=== PATIENT | male | born 1975 | race Caucasian/White ===

== ENCOUNTER 2017-08-04 20:46 | Emergency (ER) | payer MEDICAID, SELFPAY ==
[2017-08-04 20:47] VITALS: BP 144/85; PULSE 98; RESP 16; TEMP 36.9; O2SAT 94; BMI 23.6
--- NOTE | 2017-08-04 22:08 | ED.VISSUMM ---
- ER Visit Summary Date of Service: 08/04/17 Chief Complaint: Right eye redness History of Present Illness: The patient is a 41 M presents to the emergency department with right eye redness. Patient symptoms began this morning. He developed some redness of the eye. Since then, it has worsened. He denies any trauma. He did not get anything into it. He states that he is been rubbing it because it has been itching. He has had no visual change but does describe some burning in the eye. He does not wear contacts but does wear glasses occasionally. He denies any fevers or chills. He has had some mild nasal drainage. Physical Examination: Exam is relatively unremarkable. There is diffuse corneal injection. There is no hypopyon. There is no hyphema. Eyelids are everted and there is no evidence of foreign body. There is some crusting at the corner. Pupils are equal round reactive. Extra ocular muscles are intact. No periorbital erythema or cellulitis. Test Results: [] Emergency Department Course and Treatment: Patient has evidence of conjunctivitis. He will be started on erythromycin ointment. I do feel that this patient is safe for outpatient therapy. He will given ophthalmology follow-up. The symptoms worsen in the next 24-48 hours, I did career development counselor him to return to the emergency department or see ophthalmology. He will be discharged home. Treatment Plan: [] Disposition: Discharge Impression: 1. Conjunctivitis right eye This note was generated with Padin[employer] dictation software. It may contain incorrect words, spelling, and punctuation that were not noted in review of the chart prior to signing ED Disposition - Plan for ED Patient: Chief Complaint: Eye Problem Instructions: ED Conjunctivitis Bacterial Prescriptions: Erythromycin Ophthalmic 1 applic EACH EYE TID #1 tube Referrals: Placido Martell MD [STAFF PHYSICIAN] -
[2017-08-04] MEDS: Erythromycin Base 1 OPTH.TUBE 1 APPLIC EACH EYE (22:24)
== END 2017-08-04 22:27 | disposition home or self-care (01) ==
LOC: ED 22:15
PROVIDERS: Emergency Provider Emergency Medicine
DX: H10.9 Unspecified conjunctivitis (principal)
CPT/HCPCS: 99282

== ENCOUNTER 2022-07-17 13:54 | Emergency (ER) | payer MEDICAID, SELFPAY ==
[2022-07-17 13:56] VITALS: BP 146/85; PULSE 100; RESP 16; TEMP 36.5; O2SAT 98; BMI 24.7
--- NOTE | 2022-07-17 14:17 | EKG12_ITS ---
Test Reason : SUB ABUSE Blood Pressure : / mmHG Vent. Rate : 092 BPM Atrial Rate : 092 BPM P-R Int : 150 ms QRS Dur : 078 ms QT Int : 350 ms P-R-T Axes : 074 -29 013 degrees QTc Int : 432 ms Normal sinus rhythm Normal ECG No previous ECGs available Confirmed by TE HERRERA ([id number]), editorial writer CADEN MARAVILLA ([id number]) on 07/24/2022 1:40:58 PM Referred By: Danilo Ventura Confirmed By:TE HERRERA
--- NOTE | 2022-07-17 14:18 | EX.ED.DYSGE1 ---
HPI History of Present Illness Chief Complaint: Substance Abuse Detail of Chief Complaint: There is some thing wrong with my body Informant: patient Onset/Context/Timing Onset: - (After smoking marijuana that was laced with ice) Context: Sudden Onset Timing: Continuous Quality: Discomfort in his chest numbness in his arm and pain in his right and left Location: Chest, left upper extremity and great toes Current Severity: Mild Maximum Severity: Moderate Worsened by: Illicit drug use Relieved by: Nothing Associated Symptoms Associated Symptoms: Nothing Narrative Narrative: Patient is a 46-year-old male who does not want detox. He informed me that this happened to him a month and half ago. He states he constitution party but he is not a big constitution party year. He states he had similar experience when he smoked marijuana that was laced with ice. He smoked marijuana today that was apparently laced with ice. He complained of chest discomfort, numbness in his left upper extremity and pain in his right and left great toe. Patient denied headache. Patient denies visual, ocular auditory symptoms. Patient denies trouble with speech or swallowing. Patient presently has no chest pain or arm numbness. Patient denies abdominal symptoms. Patient was informed treatment for his sensation is Valium since he smoked ice . He says I want none of that . He was told because of him having chest pain an EKG was be obtained to make sure there is no abnormality. His response was I will have none of that . Patient was asked specifically what he would like. He reiterated what was done for him at [facility] 1.5 months ago. Prior similar symptoms: Yes Recent Illness/Hospitalization: Yes [facility] Medical History Substance abuse Allergy/AdvReac Type Severity Reaction Status Date / Time No Known Allergies Allergy Verified 07/17/22 13:58 Social History (Updated 07/17/22 @ 14:[address] Danilo Ventura MD) household members: significant other Smoking Status: Current every day smoker tobacco type: cigarettes alcohol intake: current substance use type: marijuana and methamphetamine ROS ROS ED Constitutional Constitutional ED: Denies chills, fever(s), subjective, sweats or weight loss Eyes Eyes: Denies blurry vision, change in vision or diplopia ENT ENT ED: Denies ear pain, rhinorrhea or sore throat Cardiovascular Cardiovascular: Reports chest pain; Denies orthopnea, palpitations or racing heartbeat Respiratory/Chest Respiratory/Chest: Denies cough, dyspnea, dyspnea on exertion or orthopnea Gastrointestinal Gastrointestinal: Denies abdominal pain, nausea or vomiting Genitourinary Genitourinary ED: Denies dysuria, hematuria or urinary frequency Musculoskeletal Musculoskeletal: Denies arthralgias, back pain, myalgias or neck pain Integumentary Denies Abrasions or rash Neurologic Neurologic: Reports paresthesias; Denies headache(s) or weakness Psychiatric Psychiatric: Reports other Details: I do not feel right ; Denies anxiety or depression EXAM Physical Exam Const Vital Signs: 07/17/22 13:56 Temperature 97.7 F L Temperature Source Temporal Pulse Rate 100 Respiratory Rate 16 Blood Pressure 146/85 H Blood Pressure Mean 105 Pulse Ox 98 Oxygen Delivery Method Room Air Positive well nourished and well developed General Appearance ED: well developed and NAD; Negative for cyanotic, diaphoretic or pallor HEENT Reports moist mucous membranes HEENT Narrative: Head is atraumatic normocephalic. Ears normal. Nares patent. Mucosa moist. Eyes PERRL and EOMs intact bilaterally Eyes Narrative: There is no nystagmus. General Eye ED: Negative for pale conjunctiva or scleral icterus Neck no lymphadenopathy, supple and no JVD Chest Wall inspection of chest normal and palpation of chest normal Resp normal respiratory effort and clear to auscultation bilaterally GI normal to inspection, nondistended, normoactive bowel sounds, non-tender, non-distended and no masses; Negative for hepatosplenomegaly Back/Spine no CVA tenderness Extremity normal to inspection Extremity Narrative: Patient has dry skin. He has thickened toenails. Neuro oriented x3, CN's II-XII intact bilaterally and no sensory deficits noted Sensorium / Orientation: alert Motor Exam: strength 5/5 throughout Skin no rashes or lesions noted and skin turgor normal General Skin Exam: elasticity normal; Negative for jaundice or pallor MDM MDM MDM Narrative Medical decision making narrative: Since patient admits to methamphetamine use and complaint of chest pain obtain EKG to evaluate for cardiac ischemia. Patient was ordered Valium based on his symptoms and drug use. He was placed on the monitor. Patient became agitated. He stated I do not like being treated like I am stupid . I informed the patient I am asking questions determine what needs to be done and will order what is appropriate. He pointed to the door and asked me to leave. Rhythm Strip Rhythm Strip: Sinus Rhythm Rate: 88 Ectopy: None EKG Initial EKG: Attestation: I personally reviewed and interpreted this EKG as follows: Interpretation: Sinus Rhythm (Sinus rhythm rate of 92 and EKG is normal. [place] interval is under 50 ms. QRS duration 78 ms. QT duration 350 ms. [place] is normal.) Treatment and Re-Evaluation :: Patient refused the Valium. He informed the nurse that he does not like being treated like a druggie . I witnessed that he yells at the registration person. Since patient has no acute ischemic changes on his EKG and has no symptoms and his symptoms are consistent with substance abuse will discharge to home since he declined detox and is not willing to listen to the nurse or me. Discharge Plan Triage Chief Complaint: Substance Abuse ED Provider: Danilo Ventura Dx/Rx/DC Orders Clinical Impression: Adverse reaction to sympathomimetics, Methamphetamine use, Cannabis abuse Instructions: ED Drug Abuse Primary Care Provider: Care Physician,No Primary Referrals: Care Physician,No Primary [Primary Care Provider] - [facility] [Non-Staff] - As soon as possible Disposition Disposition: Home, Self Care
--- NOTE | 2022-07-17 14:22 | NURSING ---
NO OLD EKGS
--- NOTE | 2022-07-17 14:31 | ED.RN ---
PT REFUSED VALIUM STATING I DON'T WANT ANY OTHER DRUGS IN MY BODY. NOTIFIED.
--- NOTE | 2022-07-17 14:44 | CM.ED ---
Addendum entered by Sangeetha Perez 07/17/22 22:02: SW was consulted by HRO K[place] to assist patient with transportation. SW met with patient with HRO outside of ED and inquired about transportation options. Patient reporting he wants to use the phone and attempted to call a couple of people with no luck. Patient reports he will walk until he can contact his gf and walked away from SW. ELLEN Flores Original Note: Social Work Note Referral Source: case find Referral Reason: no PCP BERT met with patient and introduced herself and role as [facility] Speed Operator. Patient laying on hospital bed and reports not wanting to talk. SW explained she was providing patient with PCP list. Patient shook his head no and stated he does not want to talk to anyone. BERT updated patient's RN that a PCP list is available for patient if he changes his mind. ELLEN Flores
--- NOTE | 2022-07-17 15:01 | ED.RN ---
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 RN HANDS PT URINAL. PT STATES THIS IS THE WORST TREATMENT I HAVE EVER HAD IN A HOSPITAL. 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 PT STATES YEAH BECAUSE YOU ARE TREATING ME LIKE A JUNKY. RN STATES WE ARE NOT TREATING YOU THAT WAY, THE DR ORDERED A MEDICATION THAT HE FELT WOULD HELP YOU AND ALSO AN EKG AND CARDIAC MONITORING TO CHECK FOR A HEART CONDITION, WHICH YOU HAVE TAKEN OFF AND HAVE REFUSED.
== END 2022-07-17 15:20 | disposition home or self-care (01) ==
PROVIDERS: Emergency Provider Emergency Medicine; Referring Provider Emergency Medicine; Visit Provider Emergency Medicine
DX: R07.9 Chest pain, unspecified (principal); M79.601 Pain in right arm; F12.10 Cannabis abuse, uncomplicated; M79.675 Pain in left toe(s); F17.210 Nicotine dependence, cigarettes, uncomplicated; M79.674 Pain in right toe(s); F15.90 Other stimulant use, unspecified, uncomplicated; R20.2 Paresthesia of skin; T44.905A Adverse effect of unspecified drugs primarily affecting the autonomic nervous system, initial encounter; M79.602 Pain in left arm
CPT/HCPCS: 93005; 99285